=== PATIENT | female | born 1960 | race Caucasian/White ===

== ENCOUNTER 2017-01-14 01:42 | Emergency (ER) | payer BC ==
[~2017-01-14] VITALS: Ht 165.1 cm; Wt 128.0 kg
[2017-01-14 01:46] VITALS: Ht 165.1 cm; Wt 128.0 kg
[2017-01-14] MEDS ORDERED: LIDO/EPINEPHRINE/SOD BICARB 20 ML VIAL INFIL ONE (01:52)
[2017-01-14] MEDS ORDERED: LIDOCAINE/EPINEPHRINE 1% 20 ML VIAL INFIL ONE (02:00)
[2017-01-14] MEDS ORDERED: DIPHTHERIA/TETANUS/PERTUSSIS 0.5 ML SYR/VIAL IM. ONE (02:30)
--- NOTE | 2017-01-14 02:39 | EMERGENCY ROOM VISIT NOTE ---
History First contact with patient: 01:50 Chief Complaint: LACERATION/CUT (SUT/DERMABOND) Stated Complaint: FALL-CUT ON BACK OF HEAD Nursing Triage Summary: Laceration to posterior head History of Present Illness The patient is a 56 year old female who presents to the Emergency Room with complaints of laceration to the back of her head. The patient states that she was walking through a hallway, when she slipped, fell, and shook her head, causing the injury. She did not lose consciousness or suffer additional injury. The patient was able to cleanse the wound with the help of friends, and now presents to the ER for evaluation. She is unsure of her tetanus status. She does not have neck pain, chest pain, chest tightness, shortness of breath, or other complaints. The laceration occurred less than one hour ago. She is not on blood thinners. Review of Systems More than 10 systems were reviewed and otherwise negative with the exception of history of present illness. Past Medical/Surgical History No chronic medical disease Family History No pertinent family history Social History Smoking Status: Never Smoker Occupation Status: employed Physical Exam Vital Signs Date Time Temp Pulse Resp B/P Pulse Ox O2 Delivery O2 Flow Rate FiO2 01/14/17 01:46 108 18 176/89 97 Room Air Physical Exam VITALS: Vitals are noted on the nurse's note and reviewed by myself. Vital signs stable. GENERAL: Well-developed, well-nourished, white female, who is in no acute distress and resting comfortably. Patient is cooperative with the examination. HEAD: There is a 4.0 cm horizontal laceration over the posterior occiput that does gape and will require repair. Bleeding is well-controlled. EARS: External ear normal. External auditory canals clear, tympanic membranes pearly combs without erythema or effusion bilaterally. EYES: Pupils equal round and reactive to light and accommodation. Conjunctivae without injection, sclerae without icterus. Extraocular movements intact. NECK: Supple without nuchal rigidity. No lymphadenopathy. No thyromegaly. Cervical spine is nontender. HEART: Regular rate and rhythm without murmurs gallops or rubs. LUNGS: Clear to auscultation bilaterally without wheezes, rales or rhonchi. No retractions or accessory muscle use. NEURO: Patient was alert and oriented to person place and time. CN II through XII grossly intact. Medical Decision & Procedures Procedure Laceration repair. Patient elects to have their laceration repaired. Verbal consent was obtained to perform the procedure. There is an abundance of materials available for the procedure. Patient is not allergic to latex. Using sterile technique the wound was cleaned with Betadine. The area was sterilely draped. 6 ml of 1% buffered lidocaine with epinephrine was used to anesthetize the posterior scalp laceration. Once the patient was anesthetized, the wound was copiously irrigated under pressure with sterile saline. The wound was explored and there were no deep structures injured such as tendons, bone, or significant blood vessels. The laceration was repaired using 3 geneva with the wound edges being well approximated. Hemostasis was achieved. The area was cleaned with sterile saline and dressed with bacitracin ointment and bandage. The patient was given a tetanus booster. Patient tolerated the procedure well without complications. Blood loss was negligible. ED Course Physical exam and history were performed. Nursing notes and EMR were reviewed. Patient appears to have fallen, struck her head, suffer laceration to the back of her head. On examination she does have a laceration that was repaired as above. She tolerated the procedure well. Her tetanus was updated. The patient does not have other significant findings on exam, and appears well for discharge home. Wound care instructions were discussed and the patient was otherwise invited back to the ER with any new, worsening, or concerning symptoms. The chart was completed utilizing [employer] Speech Voice Recognition Software. Grammatical errors, random word insertions, pronoun errors, and incomplete sentences are an occasional consequence of this system due to software limitations, ambient noise, and hardware issues. Any formal questions or concerns about the content, text, or information contained within the body of this dictation should be directly addressed to the provider for clarification. . Medical Decision Differential diagnosis: Etiologies such as concussion, contusion, fracture, subdural hematoma, epidural hematoma, intraparenchymal hemorrhage, as well as other traumatic pathologies were entertained. Impression Primary Impression: Laceration of scalp Departure Information Dispostion Home / Self-Care Condition GOOD Forms HOME CARE DOCUMENTATION FORM, IMPORTANT VISIT INFORMATION Patient Instructions [facility], ED Laceration All, ED Scar Tips to Minimize Additional Instructions Keep wound clean and dry. Do not allow any crusting or dried blood to accumulate on geneva. If this occurs, use a mild soap/water on a Q-tip to clean the wound. Do not use Peroxide to clean the wound as this can delay healing Use an antibiotic ointment like Bacitracin for 3-4 days, then let wound dry. You may bathe and shower as normal, but DO NOT SOAK the wound. Staple removal in about 8-10 days with your Family Doctor or in the ER. Return sooner for any signs of infection, increasing redness, swelling, or drainage.
[2017-01-14 02:45] VITALS: BP 105/89; PULSE 96; O2SAT 95
[2017-06-11] MEDS ORDERED: LSN/10125 PO (14:52)
[2017-06-11] MEDS ORDERED: PREMARIN VAGINAL PV (14:52)
[2017-06-27] MEDS ORDERED: METO-157 PO (16:04)
[2017-06-27] MEDS ORDERED: MTR600X PO (16:04)
[2017-06-27] MEDS ORDERED: OXYC-57 PO (16:04)
== END 2017-01-14 02:45 | disposition home or self-care (01) ==
LOC: C.EDB 01:43
DX: S01.01XA Laceration without foreign body of scalp, initial encounter (principal); W01.0XXA Fall on same level from slipping, tripping and stumbling without subsequent striking against object, initial encounter; Z23 Encounter for immunization

== ENCOUNTER 2017-06-27 11:39 | Day surgery (SDC) | payer BC ==
[2017-06-11 14:53] VITALS: BMI 44.0
--- NOTE | 2017-06-11 15:19 | PAT Medication Instructions ---
Service Date Jun 11, 2017. Current Home Medication List Hctz/Lisinopril (Lisinopril/Hctz 10/12.5 Mg), 1 TAB PO HS [Premarin Vaginal Cr], 1 DOSE PV 2XWK Medication Instructions For Your Scheduled Surgery - Hold the following medications 24 hours prior to surgery: [Premarin Vaginal Cr], 1 DOSE PV 2XWK - Hold the following medications as scheduled the night before surgery: Hctz/Lisinopril (Lisinopril/Hctz 10/12.5 Mg), 1 TAB PO HS If you have any questions please call us at [phone] or [phone] or [phone]
[2017-06-11 16:26] LABS: PARTIAL THROMBOPLASTIN RATIO 1.1; PROTHROMBIN TIME (PATIENT) 10.7 SECONDS (9.0-12.0)
[2017-06-11 16:27] LABS: BUN/CREATININE RATIO 16.9 (10-20); CALCIUM 9.5 mg/dl (8.5-10.1); CREATININE 0.83 mg/dl (0.60-1.20); POTASSIUM 4.7 mmol/L (3.5-5.1)
[~2017-06-27] VITALS: Ht 165.1 cm; Wt 120.7 kg
[~2017-06-27 11:39] MED LIST: ATROPINE SULFATE 0.1 MG/ML 5ML SYR IV PRN; CEFAZOLIN 3000 MG/65 ML D5W 65 ML IV SCH; EpHEDrine SULFATE INJ 50 MG/ML AMP IV PRN; FENTANYL CITRATE INJ 50 MCG/1 ML 2 ML VIAL IV PRN; HYDROmorphone INJ 1 MG/ML SYR IV PRN; LACTATED RINGER'S 1000ML 1,000 ML IV SCH; LSN/10125 PO; ONDANSETRON INJ 2 MG/ML 2 ML VIAL IV PRN; PREMARIN VAGINAL PV
[2017-06-27 12:02] LABS: HEMATOCRIT 43.4 % (37-47); MEAN CORPUSCULAR HEMOGLOBIN 30.5 pg (25-34); MEAN PLATELET VOLUME 10.2 fL (7.4-10.4); PLATELET COUNT 305 K/uL (130-400); RED BLOOD COUNT 4.52 M/uL (4.2-5.4); WHITE BLOOD COUNT 7.71 K/uL (4.8-10.8)
[2017-06-27 12:09] LABS: MEAN CORPUSCULAR HGB CONC 31.8 g/dl (32-36)
[2017-06-27 12:12] VITALS: BP 140/60; PULSE 69; TEMP 37.1; O2SAT 97; Ht 165.1 cm; Wt 120.7 kg
--- NOTE | 2017-06-27 13:16 | History & Physical Bridge Note ---
H&P Re-Evaluation Bridge Note: I have examined the patient, reviewed the History & Physical and in the interval since the performance of the History & Physical I have noted the following changes of clinical significance: No changes noted
[2017-06-27] MEDS ORDERED: ROCURONIUM BROMID 50MG/5ML SYR ONE (13:26)
[2017-06-27] MEDS ORDERED: BUPIVACAINE 0.5 % 5 MG/1 ML MPF 30ML VIAL ONE (13:27)
[2017-06-27] MEDS ORDERED: MIDAZOLAM HCL 1 MG/ML 2ML VIAL ONE (13:31)
[2017-06-27] MEDS ORDERED: FENTANYL CITRATE INJ 50 MCG/1 ML 2 ML VIAL ONE ×2 (13:31)
[2017-06-27] MEDS ORDERED: BUPIVACAINE/EPINEPHRINE 0.5% MPF 1:200,000 10 ML VIAL ONE (13:35)
[2017-06-27] MEDS ORDERED: GLYCOPYRROLATE INJ 0.2 MG/ML VIAL ONE (14:26)
[2017-06-27] MEDS ORDERED: ONDANSETRON INJ 2 MG/ML 2 ML VIAL ONE (14:26)
[2017-06-27] MEDS ORDERED: ROCURONIUM BROMIDE 10 MG/ML 5 ML VIAL IV ONE (14:26)
[2017-06-27] MEDS ORDERED: LARYING-O-JET KIT (LTA) ONE ×2 (14:26)
[2017-06-27] MEDS ORDERED: PROPOFOL IV EMULSION 10 MG/ML 20 ML VIAL IV ONE (14:26)
[2017-06-27] MEDS ORDERED: DEXAMETHASONE SOD INJ 4 MG/ML VIAL ONE (14:26)
[2017-06-27] MEDS ORDERED: LIDOCAINE HCL 2% 2 ML VIAL (20MG/ML) ONE (14:26)
[2017-06-27] MEDS ORDERED: NEOSTIGMINE METHYLSULFATE 5 MG/5 ML SYR ONE (14:26)
[2017-06-27 14:35] VITALS: BP 126/60; PULSE 60; TEMP 36.3; O2SAT 98
[2017-06-27] MEDS ORDERED: HYDROmorphone INJ 2 MG/ML SYR/VIAL ONE (15:03)
[2017-06-27] MEDS ORDERED: KETOROLAC TROMETHAMINE 30 MG/ML VIAL ONE (15:22)
[2017-06-27] MEDS ORDERED: FERRIC SUBSULFATE 8 GM VIAL ONE (15:23)
[2017-06-27] MEDS ORDERED: SODIUM CHLORIDE 0.9% 1000ML 1,000 ML IV SCH (15:49)
--- NOTE | 2017-06-27 15:50 | [facility] Post Operative Brief Note ---
Immediate Operative Summary Operative Date Jun 27, 2017. Pre-Operative Diagnosis Simple right ovarian cyst Post-Operative Diagnosis Simple right ovarian cyst Procedure(s) Performed Evaluation Under Anesthesia; Laparoscopic Bilateral Salpingo-Oophorectomy, Pelvic Washings Surgeon Dr. Damaris Rivera Line Crewman Surgeon(s) Dr. Evgeny Ramirez Estimated Blood Loss 20 cc Findings Large 12x10 cm right ovarian cystic mass, normal uterus, fallopian tubes and left ovary Fluids (cc crystalloids) 1300 ml LR Specimens Cytology #1 Pelvic washings #2 Right ovarin cyst fluid Permanent Specimen A: Right ovary and tube and cyst B: Left ovary and tube Drains Straight cath 150 ml Anesthesia GETA Complication(s) None Disposition Recovery Room / PACU
--- NOTE | 2017-06-27 15:55 | Discharge Instructions-SurgCtr ---
Discharge Instructions Date of Service Jun 27, 2017. Visit Reason for Visit: Large Pelvic Right Ovarian Cyst Discharge Discharge Diagnosis / Problem: Laparoscopy , pelvic washing, BSO Discharge Goals Goal(s): Decrease discomfort Activity Recommendations Activity Limitations: as noted below Lifting Limitations: no more than 10 pounds Exercise/Sports Limitations: until after follow-up appointment Driving or Machine Use: SPECIAL CARE INSTRUCTIONS: * Check temperature twice daily for one week. Report any elevation over 100.4 degrees Fahrenheit (38.0 degrees Celsius). * Call office in the next few days for return appointment. * You may experience some vaginal spotting and/or bleeding, this is normal for one or two weeks and should not alarm you. * Post-operative discomfort may consist of a sore throat, a "bloated" feeling and pain in the shoulders. These are normal symptoms which usually only last for two or three days. * Call with increasing pain, not controlled by your pain meds, Nausea, vomiting , unable to pass gas FOLLOW UP VISIT: Keep any scheduled doctor appointments. Anesthesia . Post Anesthesia Instructions: If you have had General Anesthesia or IV Sedation: * Do not drive today. * Resume driving when surgeon permits. * Do not make important decisions or sign legal documents today. * Call surgeon for: 1. Temperature elevations greater than 101 degrees F. 2. Uncontrollable pain. 3. Excessive bleeding. 4. Persistent nausea and vomiting. 5. Medication intolerance (nausea, vomiting or rash). * For nausea and vomiting use only clear liquids such as: tea, soda, bouillon until nausea subsides, then gradually increase diet as tolerated. * If you have any concerns or questions, call your surgeon's office. If physician is unavailable and it is an emergency, call 911 or go to the nearest emergency room. . Diet Recommendations Home Diet: resume previous diet Procedures Procedures Performed: Evaluation Under Anesthesia; Laparoscopic Bilateral Salpingo-Oophorectomy, Pelvic Washings Pending Studies Studies pending at discharge: no Work Instructions Return To Work: after follow-up Medical Emergencies . Who to Call and When: Medical Emergencies: If at any time you feel your situation is an emergency, please call 911 immediately. . Non-Emergent Contact Non-Emergency issues call your: Surgeon Call Non-Emergent contact if: temperature is above 100.5, your pain is not controlled, your pain is worsening, wound has increased drainage, wound has increased redness, wound has increased pain . . "Provider Documentation" section prepared by Damaris Rivera. .
[2017-06-27] MEDS ORDERED: MoRPHine SULFATE 4 MG/ML 1 ML CARP\\VIAL IV PRN (16:00)
[2017-06-27] MEDS ORDERED: OXYCODONE/ACETAMINOPHEN 5-325 TAB PO PRN ×2 (16:00)
[2017-06-27] MEDS ORDERED: IBUPROFEN 600 MG TAB PO PRN (16:00)
[2017-06-27] MEDS ORDERED: KETOROLAC TROMETHAMINE 30 MG/ML VIAL IV. PRN (16:00)
[2017-06-27] MEDS ORDERED: METOCLOPRAMIDE HCL INJ 5 MG/ML 2 ML VIAL IV PRN (16:00)
[2017-06-27] MEDS ORDERED: MoRPHine SULFATE 2 MG/ML CARP IV PRN (16:00)
[2017-06-27] MEDS ORDERED: ONDANSETRON INJ 2 MG/ML 2 ML VIAL IV PRN (16:00)
[2017-06-27] MEDS ORDERED: METO-157 PO (16:04)
[2017-06-27] MEDS ORDERED: MTR600X PO (16:04)
[2017-06-27] MEDS ORDERED: OXYC-57 PO (16:04)
[2017-06-27 16:18] VITALS: PULSE 54
--- NOTE | 2017-06-27 16:44 | Anesthesiology Progress Note ---
Anesthesia Post Op Note Date & Time Jun 27, 2017 at 16:43 Vital Signs Pain Intensity: 2 Vital Signs Past 12 Hours Date Time Temp Pulse Resp B/P (MAP) Pulse Ox O2 Delivery O2 Flow Rate FiO2 06/27/17 16:18 54 12 06/27/17 16:18 58 12 86 06/27/17 16:16 130/57 06/27/17 16:13 55 16 93 06/27/17 16:13 57 16 06/27/17 16:11 120/66 06/27/17 16:08 61 19 90 06/27/17 16:08 36.8 54 22 120/66 93 Room Air 06/27/17 16:08 61 19 06/27/17 16:06 125/64 06/27/17 16:03 60 13 06/27/17 16:03 58 13 96 06/27/17 16:01 127/64 06/27/17 15:58 58 14 98 06/27/17 15:58 58 14 06/27/17 15:56 134/67 06/27/17 15:53 56 15 06/27/17 15:53 54 15 100 06/27/17 15:52 56 13 06/27/17 15:52 56 13 100 06/27/17 15:51 135/65 06/27/17 15:47 59 12 100 06/27/17 15:47 60 12 06/27/17 15:46 143/74 06/27/17 15:43 147/67 06/27/17 15:42 65 06/27/17 15:42 36.8 16 147/67 99 Mask 10 06/27/17 15:42 65 100 06/27/17 12:12 37.1 69 20 140/60 (86) 97 Room Air Notes Mental Status: alert / awake / arousable, participated in evaluation Pt Amnestic to Procedure: Yes Nausea / Vomiting: adequately controlled Pain: adequately controlled Airway Patency, RR, SpO2: stable & adequate BP & HR: stable & adequate Hydration State: stable & adequate Anesthetic Complications: no major complications apparent
[2017-06-27 17:10] VITALS: BP 135/61; TEMP 36.3; O2SAT 95
[2017-06-27 17:45] VITALS: BP 132/61; TEMP 36.5; O2SAT 96
--- NOTE | 2017-06-27 20:46 | OPERATIVE REPORT ---
DATE OF OPERATION: 06/27/2017 PREOPERATIVE DIAGNOSIS: The patient is a 57-year-old G2, P2-0-0-2 postmenopausal female with a large, 10 cm right ovarian cystic mass and normal CA-125. POSTOPERATIVE DIAGNOSIS: Same. PROCEDURES: Exam under anesthesia, laparoscopy, pelvic washings, drainage of right ovarian cyst and bilateral salpingo-oophorectomy. SURGEON: Dr. Rivera. FOOD AIDE: Dr. Ramirez. ESTIMATED BLOOD LOSS: 20 ml. FLUIDS: 1300 mL of lactated Ringer's. DRAINS: Straight catheter drained 150 mL of urine. SPECIMENS: Pelvic washings, right ovarian cystic fluid and right ovary and cyst together and left ovary and bilatareal tubes. ANESTHESIA: General endotracheal. COMPLICATIONS: None. FINDINGS: Exam under anesthesia revealed large, about 14 weeks' size mid pelvic mass, mobile and smooth surfaces. INTRAOPERATIVE FINDINGS: There was a large, about 12 x 10 cm right ovarian cystic mass and smooth surfaces, normal left ovary and tube, normal uterus. There was a small about 1.1 x 1.5 x 1.5 cm subserosal fibroid on the posterior left uterine fundus and normal bowel surfaces, normal upper abdomen and normal pelvis. DESCRIPTION OF PROCEDURE: The patient was taken to the operating room where general anesthesia was given without difficulty. She was placed in dorsal lithotomy position, prepared and draped in usual sterile fashion. A straight catheter was used to drain the bladder. Exam under anesthesia was done with the above findings. A weighted speculum was placed in the patient's vagina. Cervix was visualized, grasped with Hulka tenaculum, which also has a manipulator tip. It was left in the uterus to manipulate the uterus during surgery and gloves were changed. Attention was turned to the patient's abdomen where a periumbilical skin incision was made and the fat tissue was dissected off with the tip of hemostat. Fascia was visualized, grasped with Rufino clamp and the Veress needle was inserted through the fascia and normal saline was freely flowing from the Veress needle and suctioned back clear fluid. CO2 gas was attached to the Veress needle. Intraabdominal entrance pressure was 5 and it was set to 15 mmHg. Pneumoperitoneum was obtained with CO2 gas and Veress needle was removed and optic trocar was used to enter the abdominal cavity, the trocar with the scope under direct visualization. Visualization of the abdomen revealed smooth surface bowels, omentum, liver and stomach, and there was a large, about 12 x 10 cm mid pelvic cystic mass which belongs to the right ovary. Then another 5mm trocar was placed from left lower quadrant under direct visualization. Then pelvic washings done and sent to the cytology. The patient was placed in Trendelenburg position. Uterus and left ovary were visualized to be normal. Pictures were taken and the 1.2 cm incision was made on the suprapubic area where the old scar of was present and another trocar was placed from this incision under direct visualization. The cystic mass in the mid pelvis was in close proximity to the this trochar. From this trocar, a laparoscopic needle was inserted under direct visualization and punctured into this right ovary with the cyst in it and the cystic fluid was suctioned and sent for cytology. All the cystic fluid was suctioned, about 300 mL of fluid was obtained and the right ovary shrunk completely. There was no leakage of fluid into the pelvis. The the needles was removed. The right ovarian wall was held with a grasper and the infundibulopelvic ligament was identified and held with LigaSure device, coagulated x3 and cut. It was continued till the cornua of uterus. The ovary with the cyst in it and the fallopian tube were excised from the right adnexa with the LigaSure device. This was then placed in Endobag and brought from the suprapubic incision and taken out without difficulty and the base of the oophorectomy was hemostatic. Irrigation was used and the base was coagulated gently with the tip of LigaSure device. Then attention was turned to the left ovary and tube. They were held with grasper and the infundibulopelvic ligament was grasped with the LigaSure device, coagulated and cut and the mesosalpinx was again coagulated and cut with LigaSure device and the left ovary and tube were excised completely from the left adnexa. Those were also placed in a different Endobag and brought out from the suprapubic incision and the base of the excision was hemostatic. The pelvis was irrigated with warm normal saline and suctioned. Again, the surgical sites were inspected to be hemostatic. Pictures were taken and then on both pelvic sidewalls, ureters were visualized to be peristalsing and moving discreetly on the left and right sides. Then decision was made to end the procedure, instruments were removed. CO2 gas was emptied completely and trocars were removed and the fascial incisions were repaired with 0 Vicryl with [id number] stitches on the suprapubic and periumbilical sites. All the skin incisions were repaired with 4-0 Monocryl in a subcuticular fashion and the incisions were covered with Steri-Strips and 4 x 4s. Attention was turned to the patient's vagina, where the Hulka manipulator was removed and the oozing from tenaculum site was controlled with Monsel solution and all the instruments were removed from patient's vagina and the procedure was ended. The patient tolerated the procedure well. Sponge, lap and needle count was correct x3. She was given 3 g of cefazolin before surgery. She was taken to the recovery room in stable condition. No complications happened and I was present during whole procedure. I attest to the content of the Intraoperative Record and any orders documented therein. Any exceptions are noted below. MITCH
== END 2017-06-27 17:45 | disposition home or self-care (01) ==
LOC: C.ACU 11:39
PROVIDERS: ATTEND Obstetrics & Gynecology
DX: N83.291 Other ovarian cyst, right side (principal); N83.292 Other ovarian cyst, left side; I10 Essential (primary) hypertension; Z78.0 Asymptomatic menopausal state